=== PATIENT | male | born 1985 | race Caucasian/White ===

== ENCOUNTER 2025-05-29 15:49 | Outpatient (AMB) | payer OTHER, SELFPAY ==
--- NOTE | 2025-05-29 15:57 | MHC.PC.OV ---
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: No Accompanied by: Self / Same As Patient Allergies No Known Allergies Allergy (Verified 05/29/25 16:11) Medication List - Last Reconciled 05/29/25 by Marin Martinez MD carvedilol 6.25 mg PO insulin glargine (Lantus Solostar U-100 Insulin) 25 units subcut BEDTIME insulin lispro (Admelog SoloStar U-100 Insulin lispro) 1 sliding scale dose subcut USEASDIRECTD labetalol 200 mg PO TID losartan 50 mg PO DAILY rosuvastatin 10 mg PO DAILY Tobacco use date assessed: 05/29/25 Dental Screening Dental Screen Date: 05/29/25 Did you have a dental visit in the last 12 months?: No Did you have a dental problem in the last 6 months where you did not have access to dental care?: No Was dental information given to patient?: No HPI HPI Comments History of Present Illness Details History of Present Illness The patient is a 39 year old male presenting to [facility] and manage his chronic conditions. Hypertension and Diabetes Mellitus: The patient has a history of hypertension and diabetes since 2005. He reports difficulty controlling his blood pressure and blood sugar. His medications were recently refilled by a bass mechanism maker after he ran out, but he is missing his lispro insulin. Cardiac Arrhythmia: The patient was hospitalized at the end of February for 5 days due to chest pain and shortness of breath. During the hospitalization, he was diagnosed with rhinovirus and a cardiac arrhythmia. A referral to a boiling tub operator was made, but the appointment was canceled by the specialist's office the day before. Anxiety: The patient reports a history of anxiety but is not taking any medication for it. Suspected Sleep Apnea: The patient's partner reports that he snores excessively and has apneic episodes at night where he stops breathing. He has not had a sleep study. Surgical History: - No surgical history discussed. Medications: - Carvedilol 6.25 mg once daily for hypertension. - Labetalol 200 mg three times daily for hypertension. - Losartan 50 mg once daily for hypertension. - Rosuvastatin 10 mg once daily for hypercholesterolemia. - Lantus insulin 25 units at night for diabetes. - Reports he is currently out of his Lispro insulin, which he takes on a sliding scale for diabetes. Social History: - Substance use: Denies smoking, alcohol consumption, and illicit drug use. Family History: - The patient denies any family history of cancer. Past Medical History - Hypertension, diagnosed in 2005. - Diabetes mellitus, diagnosed in 2005. - Anxiety. - Hospitalization in February for five days due to chest pain and shortness of breath, with diagnoses of rhinovirus and cardiac arrhythmia. - History of pneumonia with hospitalization in [place]. - Recent ophthalmology exam. Health Maintenance - Will follow up in two weeks to review lab results and adjust the treatment plan. - Will place a referral for an forensic economist. [facility] Medical History (Updated 06/01/25 @ 08:16 by Marin Martinez MD) Overweight (BMI 25.0-29.9) Hyperlipidemia Sleep apnea Anxiety Hypertension Cardiac arrhythmia Diabetes type 2 Family History (Updated 05/29/25 @ 16:30 by Donavan Palacio MA) Mother Diabetes High blood pressure Father Dementia High blood pressure Diabetes Social History Housing: House Patient Tobacco Use Status: Never used Tobacco service: No Current occupational status: disabled Cognitive needs: No Hearing needs: No Vision needs: Yes (rx glasses) Review of Systems Narrative Review of Systems - Cardiovascular: Reports history of chest pain. - Respiratory: Reports shortness of breath, excessive snoring, and apneic episodes at night. - Psychiatric: Reports anxiety. - General: Denies allergies. 10-point ROS reviewed and negative except as noted in HPI Physical exam (Primary Care) BMI result Body Mass Index 28.0 Tobacco/Smoking Status: Tobacco use Status Tobacco use date assessed 05/29/25 05/29/25 16:33 Patient Tobacco Use Status Never used Tobacco 05/29/25 16:33 Narrative Physical Exam General: Well-appearing, in no acute distress. Vital signs: Within normal limits. HEENT: Normocephalic, atraumatic. PERRLA, EOMI. Conjunctiva clear, sclera anicteric. Oropharynx clear, mucous membranes moist. TMs intact bilaterally. Neck: Supple, no lymphadenopathy, no thyromegaly, no JVD or carotid bruits. Cardiovascular: Tender heart. RRR, normal S1/S2, no murmurs, rubs, or gallops. Peripheral pulses 2+ and symmetric. No edema. Respiratory: Lungs clear to auscultation bilaterally, no wheezes, rales, or rhonchi. Normal effort. Abdomen: Soft, non-tender, non-distended. Normoactive bowel sounds. No hepatosplenomegaly, no masses. MSK: Full range of motion, no joint swelling or deformity. Normal gait. Skin: Warm, dry, intact. No rashes, lesions, or pallor. Neuro: Alert and oriented x3. Cranial nerves II-XII intact. Strength 5/5 throughout. Sensation intact. Reflexes 2+ symmetric. Normal coordination and gait. Psych: Appropriate mood and affect. Normal judgment and insight. Coding Level of Care Code New Pt Level 4 (12775) Add On Problem Visit Only Diagnoses Diabetes type 2 E11.9 Cardiac arrhythmia I49.9 Hypertension I10 Anxiety F41.9 Sleep apnea G47.30 Hyperlipidemia E78.5 Overweight (BMI 25.0-29.9) E66.3 Assessment & Plan Assessment & Plan (1) Diabetes type 2: Code(s): E11.9 - Type 2 diabetes mellitus without complications Category: Medical (2) Cardiac arrhythmia: Code(s): I49.9 - Cardiac arrhythmia, unspecified Category: Medical (3) Hypertension: Code(s): I10 - Essential (primary) hypertension Category: Medical (4) Anxiety: Code(s): F41.9 - Anxiety disorder, unspecified Category: Medical (5) Sleep apnea: Code(s): G47.30 - Sleep apnea, unspecified Category: Medical (6) Hyperlipidemia: Code(s): E78.5 - Hyperlipidemia, unspecified Category: Medical (7) Overweight (BMI 25.0-29.9): Code(s): E66.3 - Overweight Category: Medical Plan Consent Patient was informed and verbally consented to the use of an ambient scribe for clinic note documentation during this visit. Plan 1. Hypertension And Diabetes Mellitus - Will order lab work including a complete blood count, comprehensive metabolic panel, urinalysis, vitamin B12, folate, vitamin D, thyroid studies, syphilis screen, magnesium, cholesterol panel, hepatitis B and C screening, and a hemoglobin A1c. - Prescriptions for Lantus insulin will be sent. - A referral will be placed for a coding educator and a molder bench. - A referral will be placed for podiatry. 2. Cardiac Arrhythmia - An electrocardiogram will be performed in the office today. - A referral will be placed for cardiology. 3. Suspected Sleep Apnea - An at-home sleep study will be ordered. Discussion Notes I have advised the patient to complete lab work to evaluate his overall health, including kidney and liver function, blood counts, and diabetes control. I will send a prescription for his insulin. I am performing an in-office electrocardiogram to assess his heart and placing a referral to cardiology due to his recent hospitalization for arrhythmia. Referrals will also be made to podiatry for foot care, nutrition, and a coding educator to help him better manage his condition. Additionally, I am ordering an at-home sleep study to investigate his reported snoring and apneic episodes. We will follow up in two weeks to discuss the results and adjust the management plan accordingly. Patient Instructions - Please go to the lab to have your blood drawn. The lab is open from 9:00 AM to 4:00 PM. - We have sent a prescription for your insulin to the pharmacy. - We are referring you to several specialists: a heart doctor (boiling tub operator), a foot doctor (neon pumper), a molder bench, and a coding educator. They will contact you to schedule appointments. - We are ordering an at-home sleep study to check for breathing problems during sleep. The equipment will be sent to your home. - Please return for a follow-up appointment in two weeks to review your test results. Medical Decision Making The patient is a 39-year-old male with a significant history of poorly controlled hypertension and diabetes mellitus who presents to establish primary care. His recent hospitalization for chest discomfort, which revealed a cardiac arrhythmia, necessitates an urgent cardiology referral and an in-office EKG to evaluate his current cardiac status. Comprehensive lab work, including a hemoglobin A1c, is crucial to assess the severity of his glycemic control and guide adjustments to his medication regimen, particularly his insulin. Reports of snoring and apnea are highly suggestive of obstructive sleep apnea, a condition that can exacerbate his hypertension, warranting an at-home sleep study. Given his long-standing diabetes, referrals to podiatry, a coding educator, and nutrition are critical for comprehensive management and prevention of complications. A follow-up in two weeks is scheduled to review all results and formulate a long-term, multidisciplinary care plan. Total Time Statement 30 min Total time spent caring for the patient today includes pre-visit chart review, documentation, review of laboratory and diagnostic imaging results, medication reconciliation, medically necessary evaluation, counseling on diagnoses, care coordination, ordering appropriate tests and medications, review of tests performed by other providers, reporting test results to the patient, and communication with other healthcare providers. Orders: Orders Hepatitis B Surface Antigen 05/31/25 Z13.9 - Encounter for screening, unspecified Lipid Panel 05/31/25 Z13. - Encounter for screening, unspecified Vitamin B12 and Folate 05/31/25 Z13. - Encounter for screening, unspecified Hepatitis B Surface Antibody 05/31/25 Z13. - Encounter for screening, unspecified Microalbumin, Random (w Creat) 05/31/25 Z13. - Encounter for screening, unspecified Complete Blood Count Auto Diff 05/31/25 Z13. - Encounter for screening, unspecified Syphilis Screen 05/31/25 Z13. - Encounter for screening, unspecified Comprehensive Met. Panel 05/31/25 Z13. - Encounter for screening, unspecified Hepatitis C Antibody 05/31/25 Z13. - Encounter for screening, unspecified TSH reflex Free T4 05/31/25 Z13. - Encounter for screening, unspecified HIV Ab/Ag 05/31/25 Z13. - Encounter for screening, unspecified UA CC w/rflx Micro + Cult 05/31/25 Z13. - Encounter for screening, unspecified Hemoglobin A1c 05/31/25 Z13.9 - Encounter for screening, unspecified Magnesium 05/31/25 Z13.9 - Encounter for screening, unspecified Vitamin D 25-OH (D2 and D3) 05/31/25 Z13.9 - Encounter for screening, unspecified AMB EKG-In Office 05/29/25 Z13.6 - Encounter for screening for cardiovascular disorders Referrals Nurse Navigator Referral E11.9 - Type 2 diabetes mellitus without complications Cardiology Referral I49.9 - Cardiac arrhythmia, unspecified Podiatry Referral E11.9 - Type 2 diabetes mellitus without complications Nutrition/Dietitian Referral E11.9 - Type 2 diabetes mellitus without complications
[2025-05-29 16:14] VITALS: BMI 28.0
--- OUTSIDE RECORDS SUMMARY | 2025-05-30 00:34 | XMS_ITS | Clinical Summary ---
Author Organization [facility] Address [address] [place] [address] Phone Care Team Providers Care Engineer Internship Name Role Phone Unavailable Primary Care Provider Unavailabl e Medications losartan (Cozaar) 50 MG tablet Take 1 tablet (50 mg total) by mouth 1 (one) time each day 30 tablet 11 05/15/2025 Active carvedilol (Coreg) 6.25 MG tablet Take 1 tablet (6.25 mg total) by mouth in the morning and 1 tablet (6.25 mg total) in the evening. Take with meals. 60 tablet 11 05/15/2025 Active insulin glargine (LANTUS) 100 UNIT/ML injection Inject 25 Units under the skin every night 3 mL 12 05/15/2025 6 Active rosuvastatin (Crestor) 10 MG tablet Take 1 tablet (10 mg total) by mouth 1 (one) time each day 30 tablet 11 05/15/2025 6 Active Encounters Date Type Department Care Team Description 05/22/2025 Telephone [facility] [address] [place] [address] Chioma Bowles MA 05/15/2025 1:30 PM EST Office Visit [facility] [address] [place] [address] Niya Martin MD Persistent proteinuria (Primary Dx); Stage 3b chronic kidney disease (HCC); Hypertension; Type 2 diabetes mellitus with diabetic chronic kidney disease, with long-term use of insulin (HCC) 04/30/2025 Orders Only [facility] [place], [address] [place] [phone] Chioma Bowles MA Stage 3 chronic kidney disease, not otherwise specified (HCC) (Primary Dx); Albuminuria, not otherwise specified from Last 3 Months Social History Tobacco Use Types Packs/Day Years Used Date Smoking Tobacco: Never Assessed Sex and Gender Information Value Date Recorded Sex Assigned at Not on file Legal Sex Male 10:16 AM EDT Gender Identity Not on file Sexual Orientation Not on file Last Filed Vital Signs Vital Sign Reading Time Taken Comments Blood Pressure 150/85 05/15/2025 2:27 PM EST Pulse 77 05/15/2025 2:27 PM EST Temperature - - Respiratory Rate - - Oxygen Saturation - - Inhaled Oxygen Concentration - - Weight 84.1 kg (185 lb 4.8 oz) 05/15/2025 2:27 P M EST Height - - Body Mass Index - - Plan of Treatment Upcoming Encounters Date Type Department Care Team (Late st Contact Info) Description 06/19/2025 3:15 PM EST Office Visit [facility] [place], [address] [place] [phone] Niya Martin MD [address] [place] [phone] Health Maintenance Due Date Last Done Comments Hepatitis B Vaccine (1 of 3 - 19+ 3-dose series) 07/15 Pneumococcal Vaccine: Peds ( 0 to 5 Years) and At-Risk Patients (6 to 49 Years) (2 of 2 - PCV) 10/05/2019 10/04/2018 Influenza Vaccine (#1) 2025 Diabetes: Hemoglobin A1C 03/29/2025 10/30/2024 Diabetes: Ophthalmology Exam 03/29/2025 Diabetes: Pedal Pulse Checked 03/29/2025 Diabetes: Sensory Foot Exam 03/29/2025 Diabetes: Visual Foot Exam 03/29/2025
== END 2025-05-29 17:00 | disposition home or self-care (01) ==
LOC: HO.HMCFMS 15:49
PROVIDERS: Visit Provider Student in an Organized Health Care Education/Training Program
DX: E11.9 Type 2 diabetes mellitus without complications (principal); I49.9 Cardiac arrhythmia, unspecified; I10 Essential (primary) hypertension; F41.9 Anxiety disorder, unspecified; G47.30 Sleep apnea, unspecified; E78.5 Hyperlipidemia, unspecified; E66.3 Overweight

== ENCOUNTER → 2025-05-29 15:49 | Outpatient (BNVA) | payer OTHER, SELFPAY | PROVIDERS: Visit Provider Student in an Organized Health Care Education/Training Program | DX: E11.9 Type 2 diabetes mellitus without complications (principal); I49.9 Cardiac arrhythmia, unspecified; I10 Essential (primary) hypertension; F41.9 Anxiety disorder, unspecified; G47.30 Sleep apnea, unspecified; E78.5 Hyperlipidemia, unspecified; E66.3 Overweight | CPT/HCPCS: 99202 ==

== ENCOUNTER 2025-05-31 14:18 | Outpatient (REF) | payer OTHER, SELFPAY ==
[2025-05-31 17:39] LABS: MANUAL DIFF FLAG NO
[2025-05-31 17:46] LABS: Hematocrit 33.0 % (42.0-52.0); Hemoglobin 10.8 g/dl (14.0-18.0); Imm Gran Abs Auto 0.04 X10*3/uL (0.00-0.03); Imm Gran Pct Auto 0.4 % (0.0-0.4); Lymphocytes Absolute Auto 2.2 X10*3/uL (1.2-4.9); Mean Corpuscular HGB Conc 32.7 g/dl (31.0-36.0); Mean Corpuscular Hemoglobin 29.0 pg (27.0-33.0); Mean Corpuscular Volume 88.7 fL (80.0-98.0); NRBC Abs Auto 0.000 X10*3/uL (0.0-0.012); NRBC Pct Auto 0.0 /100WBC (0.0-0.2); Platelet Count 401 X10*3/uL (160-400); Red Blood Count 3.72 X10*6/uL (4.60-5.80); White Blood Count 10.6 X10*3/uL (4.8-10.8)
[2025-05-31 17:49] LABS: Appearance Urine Clear; Glucose Urine UA >=1000 mg/dL (Negative); PH 6.0 (5.0-9.0); Specific Gravity - Urine >= 1.030 (1.005-1.025); UMIC TRIGGER UACC YES
[2025-05-31 18:08] LABS: Alanine Aminotransferase 22 U/L (0-40); Albumin Level 3.2 g/dL (3.5-5.0); Alkaline Phosphatase 116 U/L (39-117); Anion Gap 7 (12-20); Aspartate Amino Transferase 36 U/L (5-37); Blood Urea Nitrogen 28 mg/dL (9-16); Calcium 9.0 mg/dL (8.4-10.2); Carbon Dioxide 23 mmol/L (22-29); Chloride 112 mmol/L (96-108); Cholesterol 107 mg/dL (<200); Estimated Glomerular Filt Rate 31; HDL Cholesterol 38 mg/dL (>40); Magnesium 1.8 mg/dL (1.6-2.6); Potassium 5.3 mmol/L (3.3-5.1); Sodium 137 mmol/L (135-145); Total Protein 6.4 g/dL (6.5-8.0); Triglycerides 131 mg/dL (<150)
[2025-05-31 18:17] LABS: Microalbum/Creatinine Ratio Ur 1202.2 ug/mg cr (<30)
[2025-05-31 18:35] LABS: Folate 10.2 ng/mL (> or = 4.0); Vitamin B12 357 pg/mL (200-900)
--- OUTSIDE RECORDS SUMMARY | 2025-05-31 19:34 | XMS_ITS | Clinical Summary ---
Author Organization [facility] Address [address] [place] [address] Phone Care Team Providers Care Suit Maker Name Role Phone Unavailable Primary Care Provider [...] [facility] [address] [place] [address] Chioma Bowles MA 05/15/2025 1:30 PM EST Office Visit [facility] [address] [place] [address] Niya Martin MD Persistent proteinuria (Primary Dx); Stage 3b chronic kidney disease (HCC); Hypertension; Type 2 diabetes mellitus with diabetic chronic kidney disease, with long-term use of insulin (HCC) 04/30/2025 Orders Only [facility] [place], [address] [place] [phone] Chioma Bowles MA Stage 3 chronic kidney [...] Visit [facility] [place], [address] [place] [phone] Niya Martin MD [address] [place] [address] Health Maintenance Due Date Last Done Comments [...] Exam 03/29/2025 Diabetes: Visual Foot Exam 03/29/2025 Insurance [facility] Medicaid
[2025-06-01 07:26] LABS: Syphilis Screen Nonreactive (Nonreactive)
[2025-06-01 07:51] LABS: HBsAGNum1 0.40 S/CO (0.00-0.99); HIV Num 1 0.07 S/CO (0.00-0.99); Hepatitis B Surface Antigen Negative (Negative); ~HepC Num1 0.10 S/CO (0.00-0.79); ~Hepatitis B Surface Antibody REACTIVE (Nonreactive); ~Hepatitis C Antibody Nonreactive (Nonreactive)
== END 2025-05-31 14:19 | disposition home or self-care (01) ==
LOC: HO.HKASLDS 14:18
PROVIDERS: PCP Student in an Organized Health Care Education/Training Program; Visit Provider Student in an Organized Health Care Education/Training Program
DX: Z11.4 Encounter for screening for human immunodeficiency virus [HIV] (principal); Z11.59 Encounter for screening for other viral diseases; Z13.89 Encounter for screening for other disorder; Z11.3 Encounter for screening for infections with a predominantly sexual mode of transmission
CPT/HCPCS: 36415; 80053; 80061; 81001; 82043; 82306; 82570; 82607; 82746; 83036; 83735; 84443; 85025; 86706; 86780; 86803; 87340; 87389

== ENCOUNTER 2025-06-19 11:44 | Outpatient (REF) | payer OTHER, SELFPAY ==
--- OUTSIDE RECORDS SUMMARY | 2025-06-19 14:36 | XMS_ITS | Clinical Summary ---
Author Organization [facility] Address [address] [place] [address] Phone Care Team Providers Care Datapower Developer Name Role Phone Unavailable Primary Care Provider [...] Telephone [facility] [address] [place] [address] Chioma Bowles MA 05/15/2025 1:30 PM EST Office Visit [facility] [address] [place] [address] Niya Martin MD Persistent proteinuria (Primary Dx); Stage 3b chronic kidney disease (HCC); Hypertension; Type 2 diabetes mellitus with diabetic chronic kidney disease, with long-term use of insulin (HCC) 04/30/2025 Orders Only [facility] [place], [address] [place] [phone] Chioma Bowles MA Stage 3 chronic kidney [...] Visit [facility] [place], [address] [place] [phone] Niya Martin MD [address] [place] [phone] Health Maintenance Due Date Last Done Comments Hepatitis B Vaccine (1 of 3 - 19+ 3-dose series) 2005 Pneumococcal Vaccine: Peds ( 0 to 5 Years) and At-Risk Patients (6 to 49 Years) (2 of 2 - PCV) 10/05/2019 10/04/2018 Influenza Vaccine (#1) 2025 Diabetes: Ophthalmology Exam 03/29/2025 Diabetes: Pedal Pulse Checked 03/29/2025 Diabetes: Sensory Foot Exam 03/29/2025 Diabetes: Visual Foot Exam 03/29/2025 Diabetes: Hemoglobin A1C 08/29/2025 05/31/2025, 05/08/2024 Procedures Procedure Name Priority Date/Time Associated Diagnosis Comments TSH W/REFLEX TO FT4 Routine 05/31/2025 1 :59 PM EST Persistent proteinuria Stage 3b chronic kidney disease (HCC) HEMOGLOBIN A1C Routine 05/31/2025 1:59 PM EST Persistent proteinuria Stage 3b chronic kidney disease (HCC) URINE ALBUMIN / CREATININE RATIO Routine 05/31/2025 1:59 PM EST Persistent proteinuria Stage 3b chronic kidney disease (HCC) URINALYSIS WITH MICROSCOPIC Routine 05/31/2025 1:59 PM EST Persistent proteinuria Stage 3b chronic kidney disease (HCC) CBC Routine 05/31/2025 1:59 PM EST Persistent proteinuria Stage 3b chronic kidney disease (HCC) RENAL FUNCTION PANEL Routine 05/31/2025 1:59 PM EST Persistent proteinuria Stage 3b chronic kidney disease (HCC) MICROSCOPIC EXAMINATION - DO NOT USE Routine 05/31/2025 1:59 PM EST from Last 3 Months Results * (ABNORMAL) Microscopic Examination (05/31/2025 1:59 PM EST) WBC, Urine 0-5 0 - 5 /hpf [facility] RBC, Urine 3-10(A) 0 - 2 /hpf [facility] Squamous Epithelial, Urine 0-10 0 - 10 /hpf [facility] Casts None seen None seen /lpf [facility] Bacteria, Urine Moderate(A ) None seen/Few [facility] 05/31/2025 1:59 PM EST 05/31/2025 us Rashad Pate MD LAB MICROBIOLOGY - GENERAL ORDERABLES Final Result [facility] [address] [place] [address] * (ABNORMAL) Urine Albumin / Creatinine Ratio (05/31/2025 1:59 PM EST) Creatinine, Ur 140.8 Not Estab. mg/dL [facility] Albumin, Urine 11,667.0 Not Estab. ug/mL [facility] Albumin/Creatin ine Ratio 8,286(H) 0 - 29 mg/g creat [facility] Comment: Normal: 0 - 29 Moderately increased: 30 - 300 Severely increased: >300 Urine Urine specimen obtained by clean catch procedure / Unknown 05/31/2025 1:59 PM EST 05/31/2025 Rashad Pate MD LAB URINE ORDERABLES Final Result [facility] [address] [place] [address] * (ABNORMAL) Urinalysis with microscopic (05/31/2025 1:59 PM EST) Specific [employer], Urine 1.028 1.005 - 1.030 [facility] [phone] pH Urine 6.0 5.0 - 7.5 [facility] Color, Urine Yellow Yellow [facility] Appearance Urine Clear Clear [facility] [place] WBC Esterase Urine Negative Negative [facility] Protein, Ur 4+(A) Negative/Tra ce [facility] Glucose, Ur 2+(A) Negative [facility] Ketones, Urine Negative Negative [facility] [place] Blood Urine 1+(A) Negative [facility] Bilirubin Urine Negative Negative [facility] [place] Urobilinogen Urine 1.0 0.2 - 1.0 mg/dL [facility] Nitrite, Urine Negative Negative [facility] [phone] Microscopic Examination See below: [facility] Comment:Microscopic was elsa cated and was performed. Urine Urine specimen obtained by clean catch procedure / Unknown 05/31/2025 1:59 PM EST 05/31/2025 Rashad Pate MD LAB URINE ORDERABLES Final Result Performing Organization Address City/[facility]/ZIP Co de Phone Number [facility] [address] [place] [address] * (ABNORMAL) CBC (05/31/2025 1:59 PM EST) WBC 10.2 3.4 - 10.8 x10E3/uL [facility] RBC 3.53(L) 4.14 - 5.80 x10E6/uL [facility] Hemoglobin 10.7(L) 13.0 - 17.7 g/dL [facility] Hematocrit 31.6(L) 37.5 - 51.0 % [facility] MCV 90 79 - 97 fL [facility] MCH 30.3 26.6 - 33.0 pg [facility] MCHC 33.9 31.5 - 35.7 g/dL [facility] RDW 13.4 11.6 - 15.4 % [facility] Platelets 419 150 - 450 x10E3/uL [facility] Blood Venous blood / Unknown 05/31/2025 1:59 PM EST 05/31/2025 Rashad Pate MD LAB BLOOD ORDERABLES Final Result [facility] [address] [place] [address] * TSH w/reflex to FT4 (05/31/2025 1:59 PM EST) TSH 3.700 0.450 - 4.500 uIU/mL [facility] [place] Comment: No apparent thyroid disorder. Additional testing not indicated. In rare instances, Secondary Hypothyroidism as well as Subclinical Hypothyroidism have been reported in some patients with normal TSH values. Blood Venous blood / Unknown 05/31/2025 1:59 PM EST 05/31/2025 Rashad Pate MD LAB BLOOD ORDERABLES Final Result [facility] [place] [address], [address] [place] [address] * (ABNORMAL) Hemoglobin A1c (05/31/2025 1:59 PM EST) Hemoglobin A1C 8.2(H) 4.8 - 5.6 % [facility] Comment: Prediabetes: 5.7 - 6.4 Diabetes: >6.4 Glycemic control for adults with diabetes: <7.0 Blood Venous blood / Unknown 05/31/2025 1:59 PM EST 05/31/2025 Rashad Pate MD LAB BLOOD ORDERABLES Final Result [facility] [address] [place] [address] * (ABNORMAL) Renal function panel (05/31/2025 1:59 PM EST) Glucose 324(H) 70 - 99 mg/dL [facility] [place] BUN 28(H) 6 - 20 mg/dL [facility] Creatinine 2.24(H) 0.76 - 1.27 mg/dL [facility] [place] eGFR CKD-EPI CR 2020 38(L) >59 mL/min/1.7 3 [facility] [place] BUN/Creatinine Ratio 13 9 - 20 [facility] [place] Sodium 136 134 - 144 mmol/L [facility] [place] Potassium 5.9(H) 3.5 - 5.2 mmol/L [facility] [place] Chloride 109(H) 96 - 106 mmol/L [facility] [place] Bicarbonate (CO2) 23 20 - 29 mmol/L [facility] [place] Calcium 8.8 8.7 - 10.2 mg/dL [facility] [place] Phosphorus 4.5(H) 2.8 - 4.1 mg/dL [facility] [place] Albumin 3.1(L) 4.1 - 5.1 g/dL [facility] [place] Blood Venous blood / Unknown 05/31/2025 1:59 PM EST 05/31/2025 Rashad Pate MD LAB BLOOD ORDERABLES Final Result [facility] [place] [address], [address] [place] [address] from Last 3 Months Insurance [employer]
[2025-06-19 18:02] LABS: MANUAL DIFF FLAG NO
[2025-06-19 18:07] LABS: Hematocrit 30.6 % (42.0-52.0); Hemoglobin 10.1 g/dl (14.0-18.0); Imm Gran Abs Auto 0.07 X10*3/uL (0.00-0.03); Imm Gran Pct Auto 0.6 % (0.0-0.4); Lymphocytes Absolute Auto 2.3 X10*3/uL (1.2-4.9); Mean Corpuscular HGB Conc 33.0 g/dl (31.0-36.0); Mean Corpuscular Hemoglobin 29.0 pg (27.0-33.0); Mean Corpuscular Volume 87.9 fL (80.0-98.0); NRBC Abs Auto 0.000 X10*3/uL (0.0-0.012); NRBC Pct Auto 0.0 /100WBC (0.0-0.2); Platelet Count 450 X10*3/uL (160-400); Red Blood Count 3.48 X10*6/uL (4.60-5.80); White Blood Count 11.7 X10*3/uL (4.8-10.8)
[2025-06-19 18:41] LABS: Potassium 6.0 mmol/L (3.3-5.1)
== END 2025-06-19 11:45 | disposition home or self-care (01) ==
LOC: HO.HKASLDS 11:44
PROVIDERS: PCP Student in an Organized Health Care Education/Training Program; Visit Provider Student in an Organized Health Care Education/Training Program
DX: Z13.89 Encounter for screening for other disorder (principal)
CPT/HCPCS: 36415; 84132; 85025

== ENCOUNTER 2025-06-19 11:44 | Outpatient (AMB) | payer OTHER, SELFPAY ==
--- NOTE | 2025-06-19 11:42 | A.OFFPC_ITS ---
Vital Signs 06/19/25 11:48 Height 5 ft 9.29 in Weight 198 lb 8 oz BMI 29.1 BP 161/81 H Blood Pressure Location Rt brachial Position Sitting Respiration 16 Pulse 97 Pulse Source Pulse Oximeter Temp 97.9 F Temp Source Oral Pulse Oximetry (%) 96 Oxygen Delivery Method Room Air Intake Visit Reasons: 2 wk - lab review Soup Mixer Required: No Accompanied by: Self / Same As Patient Allergies No Known Allergies Allergy (Verified 06/19/25 11:43) Tobacco use date assessed: 06/19/25 Dental Screening Dental Screen Date: 06/19/25 Did you have a dental visit in the last 12 months?: No Did you have a dental problem in the last 6 months where you did not have access to dental care?: No Was dental information given to patient?: No HPI HPI Comments History of Present Illness Details History of Present Illness The patient is a 39 year old male presenting for follow-up after a recent emergency department visit for low back pain and swelling, and for management of his chronic conditions. Low Back Swelling: The patient presented to the emergency department last Tuesday due to low back pain and swelling that had been present for several weeks. He denies any preceding trauma or injury. Workup in the ED reportedly included labs, an x-ray, and a CT scan, all of which were said to be normal, with no clear cause identified for his symptoms. The swelling has reportedly decreased since Tuesday but is still palpable. he complains of a subjective fever Uncontrolled Type 2 Diabetes Mellitus: The patient's diabetes is uncontrolled, with a recent Hemoglobin A1c of 7.9%. He is on two types of insulin: 25 units of long-acting insulin at night and a sliding scale insulin administered three times daily. His morning blood glucose readings are frequently elevated, in the range of 220-240 mg/dL. He also reports experiencing episodes of hypoglycemia. Uncontrolled Hypertension: His hypertension is uncontrolled despite being on three different antihypertensive medications: carvedilol, labetalol, and losartan. The losartan had been previously discontinued due to concerns about its effect on his kidneys but was restarted by his copying machine mechanic. The patient has also recently been experiencing chest pain and shortness of breath. Chronic Kidney Disease: The patient has been diagnosed with chronic kidney disease, characterized by a low filtration rate, which is attributed to his uncontrolled diabetes and hypertension. He is under the care of a copying machine mechanic. Medications: - Carvedilol 6.25 mg for hypertension - Losartan 50 mg for hypertension - Labetalol for hypertension - A medication for cholesterol, identifi ed as rosuvastatin - Long-acting insulin, 25 units nightly - Short-acting insulin, taken 3 times a day on a sliding scale Social History: - Diet: The patient has reduced his inta ke of rice and bread. - Nutritional Intake: His diet includes sweet potatoes, cauliflower, apples, peaches, and avocado. - Fluid Intake: He does not drink a lot of water. - Activity Level: He is not very active and mostly stays at home. Family History: - His father has type 2 diabetes and partha es metformin. Diagnostic Results: - CBC: Revealed anemia with low red bloo d cells, hemoglobin, and hematocrit. - Comprehensive Metabolic Panel: Potassi um was elevated at 5.3 mEq/L. - Kidney Function: Results indicate basin cleaner ronal kidney disease with a low filtration rate. - Hemoglobin A1c: 7.9%, indicating poor glycemic control. - Lipid Panel: LDL cholesterol is <70 mg /dL, and total cholesterol and triglycerides are within normal limits. - HDL Cholesterol: Low at 38 mg/dL. - Vitamin D Level: Severely deficient at 6 ng/mL. - Vitamin B12: 357 pg/mL, within the nor mal range. - Thyroid Studies: Normal. - Folate: Normal. - Urinalysis: Positive for glucose and a small amount of blood. - Infectious Disease Panel: Negative for syphilis, hepatitis B, hepatitis C, and HIV. Past Medical History - Type 2 diabetes mellitus, uncontrolled - Essential hypertension, uncontrolled - Chronic kidney disease - Hyperlipidemia - Recent emergency department visit for low back pain and swelling - History of hospitalization at [facility] - Counseled on reducing dietary intake o f high-potassium foods such as potatoes and avocado. - Advised to increase intake of water an d fiber to counteract constipation from iron supplementation. [facility] med rec summarry This is a summary of care for a 39-year-old male with a significant past medical history of insulin-dependent diabetes mellitus, hypertension, and hyperlipidemia, who presented to the [facility] Emergency Department on March 14, 2025.?The patient reported a two-day history of sharp, constant central chest pain, shortness of breath, nonproductive cough, and a fever up to 100?F.?He noted the symptoms were similar to a prior episode of pneumonia experienced five months earlier.?The patient had no established primary care provider and reported a history of poor medication adherence. Upon initial evaluation in the emergency department, the patient was found to be hypertensive, tachycardic, and had a low-grade fever.?Laboratory studies were significant for leukocytosis (WBC 17), an elevated high-sensitivity troponin of 171, a high D-dimer of 1.48, hyperglycemia (glucose 195), and evidence of an acute kidney injury with a BUN of 25, creatinine of 2.22, and a GFR of 38.?A respiratory viral panel was subsequently found to be positive for rhinovirus/enterovirus. An extensive workup was conducted to determine the etiology of his symptoms. A chest X-ray and a CT angiogram of the chest were performed, both of which were negative for acute abnormalities, including pulmonary embolism (PE) or pneumonia.?The CT scan did reveal an incidental 1.9 cm right thyroid nodule, for which a nonemergent outpatient ultrasound was recommended.?Serial 12-lead ECGs showed sinus tachycardia but were otherwise normal with no ischemic changes.?The patient was admitted to the inpatient telemetry service for further monitoring and consultation. Cardiology was consulted to evaluate the patient's chest pain and troponin elevation.?Given the pleuritic nature of the pain, the positive rhinovirus test, and the lack of ECG changes, the assessment was that the myocardial injury was likely due to viral myocarditis or costochondritis, and not an acute coronary syndrome.?A transthoracic echocardiogram performed on March 17, 2025, was normal, revealing a left ventricular ejection fraction of 59% with no regional wall motion abnormalities or significant valvular issues.?No acute cardiac interventions were deemed necessary. Nephrology was consulted for the acute kidney injury (HOMERO).?The HOMERO was thought to be superimposed on chronic kidney disease, likely precipitated by poor renal perfusion secondary to the viral illness and poor oral intake.?During his hospital stay, his renal function worsened slightly before stabilizing.?Treatment included gentle IV hydration, and his losartan and hydrochlorothiazide were held. A renal ultrasound on March 16, 2025, showed normal kidneys. Throughout the hospitalization, the patient was managed with symptomatic care for his viral illness, and his chronic conditions were addressed.?His insulin regimen, amlodipine, and rosuvastatin were continued. Labetalol was administered as needed for blood pressure control. His troponin levels trended downward, and his leukocytosis resolved.?His glucose levels were monitored and improved during his stay.?The patient was deemed stable for discharge on March 21, 2025. The patient was discharged with diagnoses including chest pain likely due to viral myocarditis or costochondritis from a rhinovirus infection, acute kidney injury superimposed on chronic kidney disease, poorly controlled type 2 diabetes mellitus with an A1c of 9.2%, hypertension, and hyperlipidemia.?He was instructed to continue his medications, including amlodipine, rosuvastatin, and his insulin regimen, but to hold losartan and hydrochlorothiazide.?Recommended future care includes establishing primary care, outpatient follow-up with both Cardiology for an ischemic evaluation and Nephrology for his kidney disease, and obtaining a thyroid ultrasound for the incidentally found nodule. ON LICENSE OF [facility] Medical History (Updated 06/19/25 @ 19:13 by Marin Martinez MD) Overweight (BMI 25.0-29.9) Hyperlipidemia Sleep apnea Anxiety Hypertension Cardiac arrhythmia Diabetes type 2 Family History Mother Diabetes High blood pressure Father Dementia High blood pressure Diabetes Social History Housing: House Patient Tobacco Use Status: Never used Tobacco service: No Current occupational status: disabled Cognitive needs: No Hearing needs: No Vision needs: Yes (rx glasses) Questionnaire PHQ-9 Over the last 2 weeks, how often have you been bothered by any of the following problems? 1. Little interest or pleasure in doing things: not at all 2. Feeling down, depressed, or hopeless: not at all 3. Trouble falling or staying asleep, or sleeping too much: not at all 4. Feeling tired or having little energy: not at all 5. Poor appetite or overeating: not at all 6. Feeling bad about yourself - or that you are a failure or have let yourself or your family down: not at all 7. Trouble concentrating on things, such as reading the newspaper or watching television: not at all 8. Moving or speaking so slowly that other people could have noticed. Or the opposite - being so fidgety or restless that you have been moving around a lot more than usual: not at all 9. Thoughts that you would be better off or of hurting yourself in some way: not at all Total score: 0 Depression Screening Interpretation: Negative Depression Screening Done: Yes Source: Developed by Drs. Syd Duval, Almas Pickett and colleagues, with an educational patric from [employer]. Thrive Questionnaire Date Thrive assessed: 06/19/25 I am a: Patient What is your living situation today?: I have a steady place to live Within the past 12 months, did the food you bought not last and you didn't have the money to get more?: Never true Within the past 12 months, did you worry whether your food would run out before you got money to buy more?: Never true Do you have trouble paying for medicines?: No Do you have trouble getting transportation to medical appointments?: No Do you have trouble paying your heating and electricity bill?: No Do you have trouble taking care of your child, family member or friend?: No Do you have trouble with day-to-day activities such as bathing, preparing meals, shopping, managing finances, etc.?: No Are you currently unemployed and looking for a job?: No Are you interested in more education?: No Please select the resources that you would like help with: None THRIVE Score: 0 AUDIT C Alcohol Use Questionnaire (AUDIT-C) 1. How often do you have a drink containing alcohol?: Never 3. How often do you have six or more drinks on one occasion?: Never Total Score: 0 ARETHA-7 AMB Questionnaire ARETHA-7 Date ARETHA - 7 assessed: 06/19/25 Feeling nervous, anxious, or on edge: 0 = Not at all Not being able to stop or control worryin = Not at all Worrying too much about different things: 0 = Not at all Trouble relaxin = Not at all Being so restless that it is hard to sit still: 0 = Not at all Becoming easily annoyed or irritable: 0 = Not at all Feeling afraid as if something awful might happen: 0 = Not at all Total ARETHA-7 score (0-4 normal; 5-9 mild; 10-14 moderate; 15-21 severe): 0 Source: Developed by Michelle Mchugh Kurt Kroenke and colleagues, with an educational patric from [employer]. Review of Systems Narrative Review of Systems - Constitutional: Reports feeling weak and having episodes of low blood sugar. - Cardiovascular: Reports recent onset of chest pain and shortness of breath. - Musculoskeletal: Reports low back pain, muscle aches, and joint pain. - Allergies: Denies known drug allergies. 10-point ROS reviewed and negative except as noted in HPI Physical exam (Primary Care) Vital Signs: Last Vital Signs Temp 97.9 F 06/19/25 11:48 Pulse 97 06/19/25 11:48 Resp 16 06/19/25 11:48 BP 161/81 H 06/19/25 11:48 Pulse Ox 96 06/19/25 11:48 Oxygen Delivery Method Room Air 06/19/25 11:48 BMI result Body Mass Index 29.1 Tobacco/Smoking Status: Tobacco use Status Tobacco use date assessed 06/19/25 06/19/25 11:45 Patient Tobacco Use Status Never used Tobacco 06/19/25 11:45 PHQ-9: PHQ-9 Score PHQ-9: Total score 0 06/19/25 11:45 Depression Screening Interpretation: Negative Thrive Assessment: Date of Thrive Assessment Date Thrive assessed 06/19/25 06/19/25 11:45 Narrative Physical Exam General: Well-appearing, in no acute distress. Vital signs: Within normal limits. HEENT: Normocephalic, atraumatic. PERRLA, EOMI. Conjunctiva clear, sclera anicteric. Oropharynx clear, mucous membranes moist. TMs intact bilaterally. Neck: Supple, no lymphadenopathy, no thyromegaly, no JVD or carotid bruits. Cardiovascular: RRR, normal S1/S2, no murmurs, rubs, or gallops. Peripheral pulses 2+ and symmetric. No edema. Respiratory: Lungs clear to auscultation bilaterally, no wheezes, rales, or rho nchi. Normal effort. Abdomen: Soft, non-tender, non-distended. Normoactive bowel sounds. No hepatosplenomegaly, no masses. MSK: Full range of motion, no joint swelling or deformity. Normal gait. Skin: Warm, dry, intact. No rashes, lesions, or pallor. lower back palpation shows fluctuating mass under skin pain complains of 10/10 pain on deep palpation Neuro: Alert and oriented x3. Cranial nerves II-XII intact. Strength 5/5 throughout. Sensation intact. Reflexes 2+ symmetric. Normal coordination and gait. Psych: Appropriate mood and affect. Normal judgment and insight. Coding Level of Care Code Est Pt Level 3 (84592) Add On Problem Visit Only Diagnoses Edema noted on examination R60.9 Uncontrolled type 2 diabetes mellitus with hyperglycemia E11.65 Azotemia R79.89 Acute kidney injury superimposed on stage 3a chronic kidney disease N17.9; N18.31 Hyperlipidemia E78.5 Hypertension I10 Right thyroid nodule E04.1 Anemia of chronic disease D63.8 Vitamin D deficiency E55.9 Hyperkalemia E87.5 Assessment & Plan Assessment & Plan (1) Edema noted on examination: Code(s): R60.9 - Edema, unspecified Category: Medical (2) Uncontrolled type 2 diabetes mellitus with hyperglycemia: Code(s): E11.65 - Type 2 diabetes mellitus with hyperglycemia Category: Medical (3) Azotemia: Code(s): R79.89 - Other specified abnormal findings of blood chemistry Category: Medical (4) Acute kidney injury superimposed on stage 3a chronic kidney disease: Code(s): N17.9 - Acute kidney failure, unspecified; N18.31 - Chronic kidney disease, stage 3a Category: Medical (5) Hyperlipidemia: Code(s): E78.5 - Hyperlipidemia, unspecified Category: Medical (6) Hypertension: Code(s): I10 - Essential (primary) hypertension Category: Medical (7) Right thyroid nodule: Code(s): E04.1 - Nontoxic single thyroid nodule Category: Medical (8) Anemia of chronic disease: Code(s): D63.8 - Anemia in other chronic diseases classified elsewhere Category: Medical (9) Vitamin D deficiency: Code(s): E55.9 - Vitamin D deficiency, unspecified Category: Medical (10) Hyperkalemia: Code(s): E87.5 - Hyperkalemia Category: Medical Plan Consent Patient was informed and verbally consented to the use of an ambient scribe for clinic note documentation during this visit. Plan 1. Uncontrolled Essential Hypertension - Discontinue carvedilol, labetalol, and losartan. - Initiate amlodipine 10 mg daily. - Patient will monitor blood pressure twice daily at home for two weeks and bring the log to his follow-up appointment. 2. Uncontrolled Type 2 Diabetes Mellitus - Initiate Jardiance (empagliflozin) 10 mg daily for improved glycemic control and renal protection. - The patient will increase his nightly insulin dose by 3 units every 3 days if his fasting morning glucose remains above 180 mg/dL, continuing until this target is met. - Continue the current sliding scale insulin regimen before meals. - Prescribe a Freestyle Graciela 3 continuous glucose monitoring system. - Prescribe glucagon nasal spray for management of severe hypoglycemic episodes. - Continue rosuvastatin for cardiovascular risk reduction. - Prescribe insulin needles. 3. Low Back Swelling - Order an ultrasound of the lower back to evaluate the swelling for a possible abscess or fluid collection. - Order a CBC to assess for leukocytosis as a sign of infection. 4. Anemia Of Chronic Kidney Disease - Prescribe daily iron supplementation to be taken with vitamin C. - Advised to take iron one hour before or two hours after a meal. 5. Severe Vitamin D Deficiency - Prescribe high-dose vitamin D to be taken once weekly. 6. Hyperkalemia - Order a stat lab draw today to recheck the potassium level. - Counseled to reduce intake of high-potassium foods. 7. Chronic Kidney Disease - The patient has an upcoming appointment with his copying machine mechanic, who will be informed of the medication changes made today. Discussion Notes I have reviewed the patient's extensive medical history and recent laboratory results. His primary issues are poorly controlled hypertension and type 2 diabetes, which have led to complications including chronic kidney disease, anemia of chronic disease, and hyperkalemia. His current antihypertensive regime n, which includes carvedilol, labetalol, and losartan, is not effectively controlling his blood pressure and is likely contributing to his hyperkalemia. I have decided to stop all three current blood pressure medications and start him on amlodipine 10 mg daily. For his uncontrolled diabetes, I have initiated Jardiance 10 mg daily, which offers both glycemic control and renal protective benefits. I provided a clear titration schedule for his nightly insulin to target a fasting glucose below 180 mg/dL. We will utilize a Freestyle Graciela 3 CGM for better monitoring, and I have prescribed glucagon nasal spray for potential hypoglycemia. I am also addressing his anemia and severe vitamin D deficiency with appropriate supplementation. The new onset of low back swelling is concerning; my physical exam findings are suspicious for a subcutaneous abscess, and I have ordered an ultrasound and CBC for further evaluation. The patient and his family member were agreeable to this comprehensive plan. Patient Instructions - Stop taking your current blood pressure medicines: carvedilol, labetalol, and losartan. - Start taking amlodipine 10 mg once a day for your blood pressure. - Check your blood pressure twice a day (morning and night) for the next two weeks and write down the numbers. - Start taking Jardiance 10 mg once a day in the morning. This medicine helps with your diabetes and protects your kidneys. - For your nighttime insulin: If your morning blood sugar is over 180, increase your insulin dose by 3 units. Do this every 3 days until your morning sugar is below 180. - You will be getting a Freestyle Graciela sensor to check your blood sugar without finger pricks. You will change it every 15 days. - You will receive a glucagon nasal spray. Use it if you have a very low blood sugar episode. - Take one iron pill every day with vitamin C. Take it 1 hour before you eat or 2 hours after you eat. This may cause constipation and dark stools. - Take one high-dose vitamin D pill once a week. - Try to eat fewer foods that are high in potassium for now, like potatoes and avocados. - You need to go for blood tests today to recheck your potassium and look for infection. - You will be scheduled for an ultrasound of your lower back to check the swelling. - Return to the clinic in two weeks with your blood pressure log. Medical Decision Making The patient is a 39-year-old male with multiple, poorly controlled chronic conditions, including type 2 diabetes, hypertension, and subsequent chronic kidney disease, anemia, and hyperkalemia. His presentation is further complicated by a new, undiagnosed swelling in his lower back and severe vitamin D deficiency. The patient's antihypertensive regimen with three agents (labetalol, carvedilol, losartan) is clearly failing and is unnecessarily complex for non-cardiac essential hypertension. The use of losartan is also contributing to his hyperkalemia (K+ 5.3), especially in the setting of CKD. Therefore, a complete overhaul of his regimen is warranted. I have discontinued all three medications and initiated monotherapy with amlodipine 10 mg, a calcium channel meera that is safe in CKD and does not affect potassium levels, with a plan for close home monitoring and follow-up in two weeks. His glycemic control is poor (HbA1c 7.9) with high fasting glucose levels despite being on basal and bolus insulin. Given his CKD, metformin is contraindicated. I have started Jardiance (empagliflozin) for its dual benefit of improving glycemic control and providing proven renal protection. A structured titration protocol for his basal insulin was provided to empower the patient to achieve a fasting glucose target of <180 mg/dL. The low back swelling discovered on exam is concerning for an abscess given its mobile, fluctuant nature. An urgent ultrasound and CBC have been ordered to confirm this suspicion and guide further management, which may require drainage. Finally, his severe vitamin D deficiency and anemia are being addressed with appropriate supplementation. Total Time Statement 20 min Total time spent caring for the patient today includes pre-visit chart review, documentation, review of laboratory and diagnostic imaging results, medication reconciliation, medically necessary evaluation, counseling on diagnoses, care coordination, ordering appropriate tests and medications, review of tests performed by other providers, reporting test results to the patient, and communication with other healthcare providers. Orders: Orders Potassium Today Z13.9 - Encounter for screening, unspecified US abdomen limited Today L02.91 - Cutaneous abscess, unspecified Complete Blood Count Auto Diff Today Z13.9 - Encounter for screening, unspecified Referrals Nephrology Referral N18.9 - Chronic kidney disease, unspecified, R79.89 - Other specified abnormal findings of blood chemistry Medications: New blood-glucose sensor (FreeStyle Graciela 3 Plus Sensor device) As directed 1 ea 0RF amlodipine 10 mg PO DAILY 90 tabs 0RF glucagon 3 mg/actuation 3 mg intranasal ONCE 2 ea 2RF empagliflozin (Jardiance) 10 mg PO DAILY 90 tabs 0RF ergocalciferol (vitamin D2) 1,250 mcg PO QWEEK 12 caps 0RF ascorbic acid (vitamin C) 500 mg PO DAILY 90 tabs 0RF ferrous sulfate 325 mg PO DAILY 90 tabs 0RF
[2025-06-19 11:48] VITALS: BP 161/81; PULSE 97; RESP 16; TEMP 36.6; O2SAT 96; BMI 29.1
== END 2025-06-19 12:49 | disposition home or self-care (01) ==
PROVIDERS: PCP Student in an Organized Health Care Education/Training Program; Visit Provider Student in an Organized Health Care Education/Training Program
DX: R60.9 Edema, unspecified (principal); E11.65 Type 2 diabetes mellitus with hyperglycemia; R79.89 Other specified abnormal findings of blood chemistry; N17.9 Acute kidney failure, unspecified; N18.31 Chronic kidney disease, stage 3a; E78.5 Hyperlipidemia, unspecified; I10 Essential (primary) hypertension; E04.1 Nontoxic single thyroid nodule; D63.8 Anemia in other chronic diseases classified elsewhere; E55.9 Vitamin D deficiency, unspecified; E87.5 Hyperkalemia

== ENCOUNTER → 2025-06-19 20:43 | Outpatient (BNV) | payer OTHER, SELFPAY | PROVIDERS: Emergency Provider Emergency Medicine; PCP Student in an Organized Health Care Education/Training Program; Visit Provider Internal Medicine | DX: R00.0 Tachycardia, unspecified (principal) | CPT/HCPCS: 93010 ==